=== PATIENT | male | born 1945 | race Caucasian/White ===

== ENCOUNTER 2021-01-11 15:55 | Outpatient (CLI) | payer MEDICARE ==
[2021-01-11 17:00] LABS: Anion Gap 13 mmol/L (10-20); BUN (Urea Nitrogen) 17 mg/dL (8.4-25.7); Calc. Creatinine Clearance 0 mL/min (70-130); Calcium 8.9 mg/dL (7.8-10.44); Carbon Dioxide 25 mmol/L (23-31); Chloride 110 mmol/L (98-107); Glucose 113 mg/dL (83-110); Sodium 144 mmol/L (136-145)
[2021-01-11 17:16] LABS: Hemoglobin 14.6 g/dL (13.5-17.5); Mean Corpuscular HGB CONC 34.4 g/dL (32.0-36.0); Mean Corpuscular Hemoglobin 31.1 pg (27.0-33.0); Mean Corpuscular Volume 90.4 fl (81.2-95.1); Mean Platelet Volume 10.4 fl (7.4-10.4); Platelet Count 132 10x3/uL (150-450); RBC Distribution Width 13.6 % (11.5-14.5); Red Blood Cell (RBC) Count 4.69 10x6/uL (4.32-5.72); White Blood Cell (WBC) Count 9.4 10x3/uL (3.5-10.5)
[2021-01-11 17:47] LABS: Prothrombin Time 11.3 sec (9.5-12.1)
[2021-01-12 00:54] LABS: SARS-CoV-2 PCR by NAA Not Detected (NotDetected)
== END 2021-01-11 15:56 | disposition home or self-care (01) ==
LOC: CSHLAB 15:55
PROVIDERS: ATTEND Specialist
DX: Z01.818 Encounter for other preprocedural examination (principal); Z20.822 Contact with and (suspected) exposure to COVID-19; R00.1 Bradycardia, unspecified
CPT/HCPCS: 71045; 80048; 85027; 85610; 85730; 87635; 93005; 93010; U0003; U0005

== ENCOUNTER → 2021-01-14 | Day surgery (SDC) | payer MEDICARE ==
[~2021-01-14] MED LIST: Atropine Sulfate 0.4 mg/1 ml Vial ONE; Fentanyl 100 MCG/2 ML VIAL ONE; Heparin 10,000 UNITS/ 10 ML VIAL ONE; Lidocaine 1% PF 5 ML VIAL ONE; Midazolam HCl 2 mg/2 ml Vial ONE; Ondansetron PF 4 MG/2 ML Vial ONE; PHENYLEPHRINE-NS 100 MCG/ML 10 ML SYRINGE ONE; Phenylephrine 40 MG/NS 250 ML 250 ML IVPB SCH; hydrALAZINE 20 MG/ML VIAL ONE
== END ==
LOC: CSHSDC 07:09
PROVIDERS: ATTEND Specialist
DX: I65.23 Occlusion and stenosis of bilateral carotid arteries (principal); Q25.49 Other congenital malformations of aorta
CPT/HCPCS: 36223; 36227; C1760; 99152; 99153; J0360; J0461; J1644; J2250; J2405; J3010